=== PATIENT | male | born 1940 | race Two or more races ===

== ENCOUNTER 2025-07-24 10:40 | Outpatient (CLI) | payer MEDICARE ==
[~2025-07-24 10:40] MED LIST: IODIXANOL 320 MG/ML INFUS..BTL 100ML IV ONE
[2025-07-24 11:04] LABS: MEAN PLATELET VOLUME 7.7 FL (7.4-10.4); RED CELL DISTRIBUTION WIDTH 14.5 % (11.5-14.5)
[2025-07-24 11:09] LABS: APTT 34 SECONDS (22-32); INR 1.9 INR
[2025-07-24 11:23] LABS: CREATININE 1.88 MG/DL (0.60-1.10); PRO BRAIN NATRIURETIC PEPTIDE 600 PG/ML (0-450); TOTAL CARBON DIOXIDE 28.8 MMOL/L (24-32); eGFR 34 ML/MIN
--- NOTE | 2025-07-24 11:33 | RADIOLOGY REPORT ---
DI CHEST,TWO VIEWS CLINICAL HISTORY: SOB; NONRHEUMATIC AORTIC VALVE STENOSIS COMPARISON: None TECHNIQUE: Frontal and lateral view of the chest was obtained FINDINGS: Lines and Tubes: None Lungs: No focal consolidation. Pleura: No effusion. No pneumothorax. Cardiomediastinal contours: Unremarkable Bones: No acute osseous abnormality. IMPRESSION: No acute cardiopulmonary disease.
--- NOTE | 2025-07-25 16:52 | RADIOLOGY REPORT ---
EXAM: CT CTA TAVR CLINICAL HISTORY: AV STENOSIS,SOB,CAROTID STENOSIS TECHNIQUE: Arterial phase spiral acquisitions obtained through the chest, abdomen, and pelvis. Multiplanar reconstructions were generated. Using automated software tools and 3-D reconstructions, imaging analysis of the aortic valve was performed. Dose reduction effected using automated exposure control and iterative reconstruction technique. 2-D and 3-D reformations are generated at a separate independent workstation. All CT scans at this facility are performed using dose modulation techniques as appropriate to a performed exam including the following: automated exposure control with adjustment of the mA and/or kV according to patient size. RADIATION DOSE: CTDI vol: 86 mGy DLP: 2556 mGy-cm Dose information generated by the CT scanner is available in PACS. IV Contrast: 150 cc visipaque 320 COMPARISON: None FINDINGS: Aortic valve annulus diameter: 27.7 x 21.7 mm. Aortic valve area: 4.52 cm2. Perimeter: 77.5 mm. Diameter through left coronary sinus: 32.2 mm. Diameter through right coronary sinus: 30.8 mm. Diameter through the noncoronary sinus: 31.6 mm. Diameter at the sinotubular junction: 26.7 mm. Distance from the right coronary sinus to right coronary orifice: 16.3 mm. Distance from left coronary sinus to left coronary orifice: 9.58 mm. Diameter of ascending aorta: 30.7 mm. Diameter of abdominal aorta: 12.6 mm. Diameter of the right common iliac artery: 7.51 mm. Diameter of the right external iliac artery: 7.51 mm. Diameter of the right common femoral artery: 7.15 mm. Diameter of left common iliac artery: 8.15 mm. Diameter of the left external iliac artery: 8.69 mm. Diameter of the left common femoral artery: 7.88 mm. Optimal coplanar projections: 3 cusp view- UKRAINIAN 3, CAU 16 Anterior view -LIU 0, CAU 18 No-BENCH MOLDER APPRENTICE-CAU view -UKRAINIAN 20, CAU 0 Other findings: Chest: There is mild scarring of the lung apices. There are 3 mm and 4 mm nodules in the apex of the right upper lobe. There is no significant airspace disease. There is no bronchiectasis or honeycombing. There is no pleural effusion. 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 No pathologic lymphadenopathy is identified by size criteria. Spleen: Unremarkable. Liver: Not enlarged. There is a subcentimeter hyperenhancing focus at the right liver dome, likely a flash filling hemangioma Gallbladder/bile ducts: Unremarkable. Pancreas: Unremarkable. Adrenal glands: Unremarkable. Kidneys and ureters: Symmetric enhancement. No solid renal mass identified. No hydronephrosis of either kidney. Urinary bladder: Thick-walled appearance, likely due to nondistention. Largely obscured by streak artifact Reproductive structures: The prostate is significantly enlarged. Evaluation is degraded by severe streak artifact from right hip prosthesis. Peritoneum/gastrointestinal: Grossly unremarkable. No significant free fluid. No distention of the large or small bowel. Normal appendix. Lymph nodes: No pathologic lymphadenopathy identified by size criteria. Bones: There is chronic appearing moderate height loss at the superior endplate of L3. No acute osseous abnormality is identified. Soft tissues: Unremarkable. IMPRESSION: TAVR MEASUREMENTS ABOVE.
== END 2025-07-24 23:59 | disposition home or self-care (01) ==
LOC: RAD 10:40
PROVIDERS: ATTEND Internal Medicine Cardiovascular Disease
DX: S32.030A Wedge compression fracture of third lumbar vertebra, initial encounter for closed fracture (principal); I35.0 Nonrheumatic aortic (valve) stenosis; J98.4 Other disorders of lung; R06.02 Shortness of breath; I65.29 Occlusion and stenosis of unspecified carotid artery; J98.11 Atelectasis; X58.XXXA Exposure to other specified factors, initial encounter; Y93.89 Activity, other specified; Y92.89 Other specified places as the place of occurrence of the external cause; Y99.8 Other external cause status
CPT/HCPCS: 36415; 71046; 80053; 83880; 85025; 85610; 85730; Q9967

== ENCOUNTER 2025-08-01 07:25 | Outpatient (CLI) | payer MEDICARE ==
[~2025-08-01] VITALS: Ht 177.8 cm; Wt 66.0 kg
[2025-08-01 13:37] VITALS: BP 169/58; PULSE 66; RESP 18; TEMP 97.3; O2SAT 100
--- NOTE | 2025-08-01 14:16 | CONSULTATION REPORT ---
History of Present Illness Providers to CC CC: Phyllis Sorenson DO ~ Refering MD: Dr. Sorenson History of Present Illness A Very pleasant 85yo man with Hypertension, Hyperlipidemia, Sick Sinus Syndrome(status post permanent pacemaker), Chronic Kidney Disease stage III(Baseline Creatinine 1..8-1.9), Heart Failure with mid-range Ejection Fraction, Severe Symptomatic Aortic Stenosis here to be evaluated in the TAVR clinic. He is accompanied by his sister. States he has had chronic dizziness, however, worsened over the last few months. Previously was able to take walks around the neighborhood, but due to increasing dizziness and weakness, no longer able to. He states dizziness is sporadic, sometimes if he gets up too quickly, other times while walking. He does report fatigue and weakness. He had pre-TAVR left heart catheterization at which time he underwent stenting to the Right Coronary Artery x 1. He was noted to have frequent bradycardia/pauses and also underwent placement of permanent pacemaker. He denies any chest pain, syncope, bleeding, LE edema. Home Medications Amlodipine 10mg QD Losartan 100mg QD Warfarin Plavix 75mg QD Finasteride 5mg QD Past Medical History Medical History Comment 1. Severe, Symptomatic Aortic Stenosis 2. Hypertensive heart disease 3. Hyperlipidemia 4. Heart Failure with mid-range ejection fraction 5. Sick sinus syndrome status post permanent pacemaker 6. Chronic Kidney disease, stage III Past Surgical History Surgical History Comment PCI RCA 07/2025 Permanent pacemaker 07/2025 Otherwise denies any prior heart/lung surgeries Past Social History Social History Comment Prior tobacco use. Denies alcohol abuse Physical Exam Last Vital Signs Recorded: Temperature: 97.3, Source: Temporal, Heart Rate: 66, Respiratory Rate: 18, BP: 169/58, Pulse Oximetry: 100, Weight: 66.000 General Appearance: alert, no apparent distress Respiratory: lungs clear Cardiovascular: regular rate, rhythm, systolic murmur (III/ SM RUSB/LUSB), other (++Healing Lt chest PPM site) Peripheral Pulses: 2+ radial (R), 2+ radial (L) Gastrointestinal: bowels sounds present Extremities: no edema Neurologic: oriented x4 Psychiatric: normal mood/affect Review of Systems ROS ROS Comments: A 14-point review of systems is positive as above. The rest of the review of systems has been done and found to be unrevealing. Results Results/Orders Results/Orders Hg 11.0 HCt 32.5, Cr 1.88 Echocardiogram: LVEF 40-45%, PV 3.97 m/s, MG 38 mmHg, SHELBY 0.9cm2. (In office today) Coronary Angiogram: Moderate LAD disease(neg iFR). Severe RCA disease s/p PCI x 1 with 4.0x15mm Xience KARINA. Carotid Ultrasound: No obstructive carotid disease EKG(pre pacemaker): Sinus zara, LBBB, rare PVC. QRS 172ms. CT TAVR: Large Caliber vessels amenable to transfemoral transcatheter aortic valve replacement. Sinuses are large enough, left coronary at 10cm, however, left sinus 33mm. Assessment/Plan Problems/Diagnosis: (1) Aortic stenosis Assessment & Plan: A Very pleasant 85yo man with Hypertension, Hyperlipidemia, Sick Sinus Syndrome(status post permanent pacemaker), Chronic Kidney Disease stage III(Baseline Creatinine 1..8-1.9), Heart Failure with mid-range Ejection Fraction, Severe Symptomatic Aortic Stenosis here to be evaluated in the TAVR clinic. He is accompanied by his sister. He has severe, symptomatic aortic stenosis with NYHA Class III symptoms of dyspn ea on exertion, fatigue, dizziness. He had an Echocardiogram and left heart catheterization with concerns of low-flow, low-gradient aortic stenosis. Repeat Echocardiogram today shows LVEF of 40-45%, peak velocity of 3.97m/s with a valve area of 0.9cm2. Patient appears to be a good candidate for a transfemoral transcatheter aortic valve replacement. His left coronary artery does arise ~ 10mm above the annulus, however, that sinus 33mm with an STJ of 53x97pi at 24mm above the annulus. --Will plan for a 26mm valve via either femoral approach, to be scheduled soon. Dr. Sorenson, We thank you for allowing us the opportunity to help with the patient. They will see you back in the office shortly. CARMEN SAENZ MD Aug 01, 2025 14:16
--- NOTE | 2025-08-01 15:31 | CARDIOLOGY REPORT ---
APPROVED REPORT EXAM: Limited 2D, Doppler, and color-flow Echocardiogram. Patient Location: OUT-PATIENT Blood Pressure: 169 / 58 mmHg Heart Rate: 63 bpm Rhythm: PACED Indications EVALUATE AORTIC STENOSIS SEVERITY SHORT OF BREATH Mileage Clerk: Jeannette SORIA MD / Tim CARRENO MD Previous echo: 2D Dimensions LVOT Diameter 2.06 (1.8-2.4cm) M-Mode Dimensions Left Atrium(MM) 2.48 (2.5-4.0cm) IVSd 0.95 (0.7-1.1cm) LVDd 5.54 (4.0-5.6cm) Aortic Root 3.29 (2.2-3.7cm) PWd 0.98 (0.7-1.1cm) IVSs 1.21 cm LVDs 4.15 (2.0-3.8cm) FS (%) 25 % PWs 1.30 cm ESV(Teich) 76.4 ml LVEF(%) 49 (>50%) Aortic Valve AoV Peak Raza. 398.6 cm/s AoV VTI 90.2 cm AO Peak GR. 59.6 mmHg AO Mean GR. 35 mmHg LVOT VTI 25.48 cm LVOT Peak Raza. 106.6 cm/s SHELBY (VMAX) 0.89 cm2 SHELBY (VTI) 0.94 cm2 Tricuspid Valve TR P. Velocity 232 cm/s RAP ESTIMATE 10 mmHg TR Peak Gr. 22 mmHg RVSP 32 mmHg LEFT VENTRICLE Upper limit normal LV size with normal wall thickness. Overall systolic function is moderately reduced. Inferoposterior hypokinesis. LVEF is 45%. RIGHT VENTRICLE RV is normal size and function. Pacemaker wire in right heart. ATRIA The left atrium size is normal. Mobile interatrial septum - no flow detected. AORTIC VALVE Trileaflet AV appears heavily calcified with significant stenosis demonstrated by reduced excursion and increased transvalvular and ascending aorta turbulance. SHELBY: 0.9 cmsq; Pkv: 3.86 m/sec; Gradients: 60 /28 mmHG. POST-pvc: Pkv: 4.08 m/sec; Gradients: 64 / 38 mmHG. Stenosis severity is severe, but fails to meet criteria due to low flow / volume, low gradient conditions. MITRAL VALVE Mild MV annular calcification without obvious stenosis. Valve not comprehensively evaluated due to focused exam. Trace regurgitation. TRICUSPID VALVE TV appears structurally normal with mild regurgitation.
== END 2025-08-01 23:59 | disposition home or self-care (01) ==
LOC: TAVR 07:25 → EDUNIT# 14:00 → TAVR 23:59
PROVIDERS: ATTEND Internal Medicine Cardiovascular Disease
DX: I08.3 Combined rheumatic disorders of mitral, aortic and tricuspid valves (principal); I35.0 Nonrheumatic aortic (valve) stenosis; R06.02 Shortness of breath; I65.29 Occlusion and stenosis of unspecified carotid artery
CPT/HCPCS: 93308